=== PATIENT | female | born 1945 | race Caucasian/White ===

== ENCOUNTER 2018-01-12 06:51 | Day surgery (SDC) | payer OTHER, BC ==
[~2018-01-12] VITALS: Ht 162.6 cm; Wt 66.7 kg
[~2018-01-12 06:51] MED LIST: DAILY MULTIPLE1 EACH PO; LO-DOSE ASPIRIN81 M2 PO; OMEGA POWER 11050 MG PO; PROBIOTIC1 EAC5 PO
[2018-01-12 07:22] VITALS: BP 118/76
[2018-01-12 10:31] VITALS: BP 148/71
[2018-01-12 10:55] VITALS: BP 131/663
== END 2018-01-12 11:04 | disposition home or self-care (01) ==
LOC: SDC 06:51
PROC: 08NE3ZZ Release Right Retina, Percutaneous Approach (ICD-10-PCS; principal; 2018-01-12)
PROC: 08QE3ZZ Repair Right Retina, Percutaneous Approach (ICD-10-PCS; principal; 2018-01-12)
PROC: 08B43ZZ Excision of Right Vitreous, Percutaneous Approach (ICD-10-PCS; principal; 2018-01-12)
DX: H33.41 Traction detachment of retina, right eye (principal); H35.371 Puckering of macula, right eye; H35.81 Retinal edema; H43.821 Vitreomacular adhesion, right eye; F10.21 Alcohol dependence, in remission; J30.1 Allergic rhinitis due to pollen; K21.0 Gastro-esophageal reflux disease with esophagitis; Z85.42 Personal history of malignant neoplasm of other parts of uterus; Z82.3 Family history of stroke; Z80.3 Family history of malignant neoplasm of breast; Z83.3 Family history of diabetes mellitus
CPT/HCPCS: J0690; J0713; J3300; J3301